=== PATIENT | female | born 1995 | race Two or more races ===

== ENCOUNTER 2020-06-09 17:21 | Emergency (ER) | payer MEDICAID ==
[~2020-06-09] VITALS: Ht 170.2 cm; Wt 58.3 kg
[2020-06-09 17:24] VITALS: BP 132/86
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
--- NOTE | 2020-06-09 17:52 | NUR ---
Pt medicated per MAR
== END 2020-06-09 18:23 | disposition home or self-care (01) ==
LOC: EDBD 17:21 → ED 18:15
DX: F41.1 Generalized anxiety disorder (principal); N63.0 Unspecified lump in unspecified breast; F17.200 Nicotine dependence, unspecified, uncomplicated
CPT/HCPCS: 99283

== ENCOUNTER 2020-06-25 08:51 | Emergency (ER) | payer MEDICAID ==
[~2020-06-25] VITALS: Ht 170.2 cm; Wt 64.2 kg
[2020-06-25 08:59] VITALS: BP 105/60
--- NOTE | 2020-06-25 09:20 | NUR ---
first contact with pt. pt c/o n/kumar/abd pain/chills for a few days. pt also stated "i wannts a test" A1. lmp 05/09/2020. pt's aox4. resps even and unlabored. bp/spo2 monitors in place. call light within reach. edmd at bedside for assessment.
[2020-06-25 09:43] LABS: MICROSCOPIC INDICATED
--- NOTE | 2020-06-25 10:00 | NUR ---
pt resting in [facility]. pt's aox4. resps even and unlabored.
--- NOTE | 2020-06-25 10:42 | NUR ---
Patient given discharge instructions and they have confirmed that they understand the instructions. Patient ambulatory with steady gait.
== END 2020-06-25 10:44 | disposition home or self-care (01) ==
LOC: ED 10:40
DX: N30.00 Acute cystitis without hematuria (principal); R51.9 Headache, unspecified; R11.0 Nausea
CPT/HCPCS: 36415; 81001; 84703; 87086; 99283

== ENCOUNTER 2020-09-18 15:02 | Emergency (ER) | payer MEDICAID ==
[~2020-09-18] VITALS: Ht 167.6 cm; Wt 61.0 kg
[2020-09-18 15:22] VITALS: BP 122/82
--- NOTE | 2020-09-18 15:57 | NUR ---
PT WITH C/O DRY COUGH AND CONGESTION X 3 DAYS, PT WITH HX OF ASTHMA, BELIEVES THE SMOKE IS MAKING HER COUGH WORSE. ERMD IN TO EVAL PT AT THIS TIME, AWAITING ORDERS.
== END 2020-09-18 16:25 | disposition home or self-care (01) ==
LOC: ED 16:20
DX: J00 Acute nasopharyngitis [common cold] (principal); J45.909 Unspecified asthma, uncomplicated
CPT/HCPCS: 99281